=== PATIENT | female | born 1945 | race Asian ===

== ENCOUNTER 2017-05-17 20:58 | Inpatient (IN) | payer OTHER, MEDICARE ==
[~2017-05-17] VITALS: Ht 162.6 cm; Wt 47.8 kg
[2017-05-17 22:00] LABS: CALCIUM, TOTAL 7.1 mg/dL (8.8-10.5); CREATININE 1.06 mg/dL (0.60-1.30); POTASSIUM 3.7 mmol/L (3.5-5.1)
[2017-05-17 22:05] LABS: ALBUMIN 1.6 g/dL (3.4-5.0)
[2017-05-17 22:08] LABS: BASOPHILS % (AUTO) 0.4 % (0.0-2.0); EOSINOPHILS % (AUTO) 1.3 % (1.0-6.0); LYMPHOCYTES % (AUTO) 10.8 % (22.0-44.0); MEAN CORPUSCULAR HEMOGLOBIN 29.1 pg (26.0-34.0); MEAN CORPUSCULAR HGB CONC 33.4 G/dL (31.0-37.0); MEAN CORPUSCULAR VOLUME 87 fL (80-100); MONOCYTES # (AUTO) 0.9 K/uL (0.1-1.0); NEUTROPHILS # (AUTO) 7.6 K/uL (1.8-7.7); NEUTROPHILS % (AUTO) 78.5 % (40.0-70.0); PLATELET COUNT (AUTO) 177 K/uL (150-450); RED BLOOD CELL COUNT(AUTO) 1.95 MIL/uL (4.00-5.20)
[2017-05-17 22:18] LABS: HEMOGLOBIN 5.7 g/dL (12.0-16.0)
[2017-05-17 22:35] LABS: BILIRUBIN,TOTAL 0.1 mg/dL (0.1-1.0)
[2017-05-17] MEDS ORDERED: SODIUM CHLORIDE 0.9% 500 ML IV ONE (22:45)
[2017-05-17] MEDS ORDERED: DOPamine HCL 400 MG/D5%-WATER 250 ML IV PRN (22:56)
[2017-05-17] MEDS ORDERED: ACETAMINOPHEN 325 MG TABLET PO PRN (23:30)
[2017-05-17] MEDS ORDERED: MAGNESIUM HYDROXIDE SUSPENSION 30 ML UDCUP PO PRN (23:30)
[2017-05-17 23:55] VITALS: BP 108/54
[2017-05-17 23:56] LABS: PROTHROMBIN TIME 10.8 SEC (9.4-11.6)
[2017-05-18] VITALS (22 sets, daily range): BP systolic 85–116; BP diastolic 43–67
[2017-05-18] MEDS ORDERED: DOPamine HCL 400 MG/D5%-WATER 250 ML IV SCH (03:00)
[2017-05-18] MEDS ORDERED: DOCUSATE SODIUM 100 MG CAPSULE PO SCH (09:00)
[2017-05-18] MEDS ORDERED: PANTOPRAZOLE SODIUM 40 MG DR TABLET PO SCH (09:00)
[2017-05-18 09:36] LABS: BASOPHILS % (AUTO) 0.4 % (0.0-2.0); EOSINOPHILS % (AUTO) 0.7 % (1.0-6.0); HEMATOCRIT 24.9 % (36-46); HEMOGLOBIN 8.4 g/dL (12.0-16.0); LYMPHOCYTES # (AUTO) 0.7 K/uL (1.0-4.8); LYMPHOCYTES % (AUTO) 9.4 % (22.0-44.0); MEAN CORPUSCULAR HEMOGLOBIN 28.8 pg (26.0-34.0); MEAN CORPUSCULAR HGB CONC 33.8 G/dL (31.0-37.0); MEAN CORPUSCULAR VOLUME 85 fL (80-100); MONOCYTES # (AUTO) 0.7 K/uL (0.1-1.0); MONOCYTES % (AUTO) 9.6 % (2.0-9.0); NEUTROPHILS # (AUTO) 5.9 K/uL (1.8-7.7); NEUTROPHILS % (AUTO) 79.9 % (40.0-70.0); PLATELET COUNT (AUTO) 170 K/uL (150-450); RED BLOOD CELL COUNT(AUTO) 2.93 MIL/uL (4.00-5.20); RED CELL DISTRIBUTION WIDTH 14.7 % (11.5-14.5)
[2017-05-18] MEDS ORDERED: DSS100 PO (17:12)
[2017-05-18] MEDS ORDERED: PANT40TA25 PO (17:13)
== END 2017-05-18 17:10 | disposition short-term general hospital (02) | DRG 597 ==
LOC: EMS 21:00 → 5N 23:29
PROVIDERS: ADMIT Internal Medicine; ATTEND Internal Medicine
PROC: 30233N1 Transfusion of Nonautologous Red Blood Cells into Peripheral Vein, Percutaneous Approach (ICD-10-PCS; principal; 2017-05-17)
DX: C50.912 Malignant neoplasm of unspecified site of left female breast (principal); E43 Unspecified severe protein-calorie malnutrition; R57.1 Hypovolemic shock; R64 Cachexia; D62 Acute posthemorrhagic anemia; Z68.1 Body mass index [BMI] 19.9 or less, adult; D63.0 Anemia in neoplastic disease; I10 Essential (primary) hypertension
CPT/HCPCS: 86850; 86900; 86901; 86920; 87081; 93005; J1265; P9016